=== PATIENT | female | born 1995 | race Two or more races ===

== ENCOUNTER 2016-12-30 18:22 | Emergency (ER) | payer OTHER ==
[~2016-12-30] VITALS: Ht 177.8 cm; Wt 72.0 kg
[2016-12-30 18:48] VITALS: BP 136/83; PULSE 78; RESP 16; O2SAT 98
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
[2016-12-30] MEDS ORDERED: CYCL5TAB PO (20:18)
== END 2016-12-30 20:52 | disposition home or self-care (01) ==
LOC: SED 18:22
DX: S16.1XXA Strain of muscle, fascia and tendon at neck level, initial encounter (principal); S80.01XA Contusion of right knee, initial encounter; W22.8XXA Striking against or struck by other objects, initial encounter; V43.62XA Car passenger injured in collision with other type car in traffic accident, initial encounter; Y93.9 Activity, unspecified; Y92.410 Unspecified street and highway as the place of occurrence of the external cause; Y99.8 Other external cause status